=== PATIENT | female | born 2000 | race African-American/Black ===

== ENCOUNTER 2021-12-11 10:45 | Emergency (ER) | payer OTHER ==
[2021-12-11 12:13] LABS: Bilirubin 1+ (Negative); Blood, Urine 250 (Negative); Clarity Cloudy (Clear); Glucose, Urine (Dipstick) Normal (Negative); Ketone, Urine Negative (Negative); Leukocyte 25 (Negative); Nitrite Positive (Negative); Protein, Urine (Dipstick) 30 mg/dl (Neg-Trace); Specific Gravity, Urine 1.025 (1.005-1.030)
[2021-12-11 12:39] LABS: WBC/HPF 0-3 HPF (0-3)
[2021-12-11 12:40] LABS: Bacteria/HPF None Seen HPF (None Seen); Squamous Epithelial 0-3 HPF (0-3)
== END 2021-12-11 12:15 | disposition home or self-care (01) ==
LOC: CSHERS 10:45
DX: N39.0 Urinary tract infection, site not specified (principal)
CPT/HCPCS: 81003; 81015; 87086; 96372; 99284

== ENCOUNTER 2023-01-03 08:17 | Outpatient (CLI) | payer BC, OTHER | END 2023-01-03 08:18 | disposition home or self-care (01) | LOC: CSHULT 08:17 | PROVIDERS: ATTEND Family Medicine | DX: Z34.82 Encounter for supervision of other normal pregnancy, second trimester (principal); Z3A.20 20 weeks gestation of pregnancy | CPT/HCPCS: 76805 ==

== ENCOUNTER 2023-01-28 17:27 | Day surgery (SDC) | payer BC, OTHER ==
[2023-01-28 17:50] VITALS: BMI 17.7
[2023-01-28] MEDS ORDERED: hydrALAZINE 20 MG/ML VIAL SLOW IVP PRN (18:21)
[2023-01-28 19:12] LABS: Fetal Membranes Rupture No Membranes Rupture (No Rupture)
== END 2023-01-28 19:36 | disposition home or self-care (01) ==
LOC: CSHLD/OP 17:27
PROVIDERS: ATTEND Family Medicine
DX: O41.8X20 Other specified disorders of amniotic fluid and membranes, second trimester, not applicable or unspecified (principal); Z3A.23 23 weeks gestation of pregnancy
CPT/HCPCS: 84112; 87480; 87510; 87660; 99283

== ENCOUNTER 2023-02-21 19:03 | Emergency (ER) | payer BC, OTHER ==
[2023-02-21] MEDS ORDERED: Acetaminophen 500 MG TAB ONE (20:38)
[2023-02-21 21:28] LABS: SARS-CoV-2 NAA Rapid Test Not Detected (NotDetected)
== END 2023-02-21 21:55 | disposition home or self-care (01) ==
LOC: CSHERS 19:03
DX: J10.1 Influenza due to other identified influenza virus with other respiratory manifestations (principal); Z20.822 Contact with and (suspected) exposure to COVID-19; F17.210 Nicotine dependence, cigarettes, uncomplicated
CPT/HCPCS: 87081; 87430; 93005; 93010; 99283

== ENCOUNTER 2023-05-09 19:30 | Inpatient (IN) | payer BC, OTHER ==
[2023-05-10] MEDS ORDERED: HYDROcodone/Acetaminophen 5/325 mg Tablet PO PRN (02:06)
[2023-05-10] MEDS ORDERED: Lidocaine 1% (PF) 30 ML VIAL SC PRN (02:06)
[2023-05-10] MEDS ORDERED: hydrALAZINE 20 MG/ML VIAL SLOW IVP PRN ×2 (02:06→21:09)
[2023-05-10] MEDS ORDERED: Ibuprofen 800 MG TAB PO PRN (02:06)
[2023-05-10] MEDS ORDERED: Misoprostol 200 MCG TAB PR PRN (02:06)
[2023-05-10] MEDS ORDERED: Tranexamic Acid 1,000 MG/10 ML VIAL IVP PRN (02:06)
[2023-05-10] MEDS ORDERED: Ondansetron PF 4 MG/2 ML Vial IVP PRN ×3 (02:06→21:09)
[2023-05-10] MEDS ORDERED: Diphenoxylate HCl/Atropine Tablet PO PRN (02:06)
[2023-05-10] MEDS ORDERED: Acetaminophen 500 MG TAB PO PRN (02:06)
[2023-05-10] MEDS ORDERED: Oxytocin 30 units/NS 500 ML 500 ML IV SCH ×2 (02:06)
[2023-05-10] MEDS ORDERED: Carboprost 250 MCG/ML AMP IM PRN (02:06)
[2023-05-10] MEDS ORDERED: Promethazine HCl 25 MG/ML VIAL IM PRN ×3 (02:06→21:09)
[2023-05-10] MEDS ORDERED: Methylergonovine 0.2 MG/ML VIAL IM PRN (02:06)
[2023-05-10] MEDS ORDERED: Lactated Ringer's 1,000 ML IV SCH (02:06)
[2023-05-10] MEDS: Misoprostol 100 MCG TAB PO SCH (03:00)
[2023-05-10 03:30] LABS: Hematocrit 36.2 % (34.9-44.5); Hemoglobin 12.3 g/dL (12.0-15.5); Mean Corpuscular Hemoglobin 28.3 pg (27.0-33.0); Mean Corpuscular Volume 83.4 fl (81.6-98.3); Mean Platelet Volume 11.7 fl (7.4-10.4); Platelet Count 162 10x3/uL (150-450); RBC Distribution Width 15.5 % (11.5-14.5); Red Blood Cell (RBC) Count 4.34 10x6/uL (3.90-5.03); White Blood Cell (WBC) Count 6.6 10x3/uL (3.5-10.5)
[2023-05-10 03:52] LABS: HBSAg Index 0.21 S/CO (0-0.99); Hep B Surf Ag - L&D Non-Reactive S/CO (NonReactive)
[2023-05-10 03:54] LABS: Syphilis Antibody Nonreactive (Nonreactive); Syphilis Antibody Index 0.15 S/CO (<1.00 Non-Reactive)
[2023-05-10] MEDS: Oxytocin 30 units/NS 500 ML 500 ML IV SCH (10:08)
[2023-05-10] MEDS ORDERED: fentaNYL 50 mcg/mL 1 mL Vial ONE (12:04)
[2023-05-10] MEDS: fentaNYL 50 mcg/mL 1 mL Vial SLOW IVP PRN (12:10)
[2023-05-10] MEDS: fentaNYL/Ropivacaine Epidural 100 ML ONE (14:07)
[2023-05-10] MEDS ORDERED: Lactated Ringer's 500 ML IV PRN (14:21)
[2023-05-10] MEDS ORDERED: Moisturizing Cream (Eucerin) 113 GM JAR TOP PRN (14:21)
[2023-05-10] MEDS ORDERED: diphenhydrAMINE 50 MG/ML VIAL IVP PRN (14:21)
[2023-05-10] MEDS ORDERED: Naloxone HCl 0.4 mg/ml Vial IVP PRN ×2 (14:21)
[2023-05-10] MEDS ORDERED: Acetaminophen 325 MG TAB PO PRN (14:21)
[2023-05-10] MEDS ORDERED: ePHEDrine Sulfate 50 MG/10 ML VIAL SLOW IVP PRN (14:21)
[2023-05-10] MEDS ORDERED: fentaNYL 2 mcg/Ropivacaine 0.2% Epidural 100 ML CADD EPIDURAL SCH (14:30)
[2023-05-10] MEDS ORDERED: Communication Order-Pharmacy FS SCH (14:30)
[2023-05-10] MEDS ORDERED: diphenhydrAMINE 25 MG CAP PO PRN (21:09)
[2023-05-10] MEDS ORDERED: Lanolin Ointment 7 GM TUBE TOP PRN (21:09)
[2023-05-10] MEDS ORDERED: Boostrix 0.5 ML (Tdap) VIAL (>/=7 yrs of age) IM ONE (21:09)
[2023-05-10] MEDS ORDERED: Milk Of Magnesia 30 ML UDCUP PO PRN (21:09)
[2023-05-10] MEDS ORDERED: Bisacodyl 10 MG SUPP PR PRN (21:09)
[2023-05-10] MEDS: Ibuprofen 800 MG TAB PO SCH (21:55)
[2023-05-10] MEDS: Docusate 100 MG CAP PO SCH (21:55)
[2023-05-11] MEDS: HYDROcodone/Acetaminophen 5/325 mg Tablet PO PRN (05:19)
[2023-05-11] MEDS: Ferrous Sulfate 325 MG TAB PO SCH (07:41)
[2023-05-11] MEDS ORDERED: Lidocaine 2% MPF 10 ML AMP (For Epidural Use) ONE (09:00)
[2023-05-11] MEDS ORDERED: Bupivacaine 0.25% HCL 30 ML VIAL ONE (09:00)
[2023-05-11] MEDS: Prenatal Vitamin 1 TAB PO SCH (09:44)
[2023-05-11] MEDS: Benzocaine-Menthol 82.5 ML CAN TOP PRN (10:22)
[2023-05-11 15:38] VITALS: BP 108/63; TEMP 98.1
== END 2023-05-11 19:27 | disposition home or self-care (01) | DRG 806 ==
LOC: CSHLD 05-10 00:40 → CSHPED 05-10 19:54
PROVIDERS: ADMIT Family Medicine; ATTEND Family Medicine
PROC: 10E0XZZ Delivery of Products of Conception, External Approach (ICD-10-PCS; principal; 2023-05-10)
PROC: 0UQMXZZ Repair Vulva, External Approach (ICD-10-PCS; 2023-05-10)
PROC: 10907ZC Drainage of Amniotic Fluid, Therapeutic from Products of Conception, Via Natural or Artificial Opening (ICD-10-PCS; 2023-05-10)
PROC: 3E0P7VZ Introduction of Hormone into Female Reproductive, Via Natural or Artificial Opening (ICD-10-PCS; 2023-05-10)
DX: O36.5930 Maternal care for other known or suspected poor fetal growth, third trimester, not applicable or unspecified (principal); O36.0130 Maternal care for anti-D [Rh] antibodies, third trimester, not applicable or unspecified; Z37.0 Single live birth; Z3A.38 38 weeks gestation of pregnancy; O70.0 First degree perineal laceration during delivery; Z79.82 Long term (current) use of aspirin
CPT/HCPCS: 51702; 85027; 86780; 86850; 86870; 86900; 86901; 87340; J0665; J2590; J3010

== ENCOUNTER 2023-11-14 12:36 | Emergency (ER) | payer BC, OTHER ==
[2023-11-14] MEDS ORDERED: Ibuprofen 200 MG TAB ONE (13:53)
[2023-11-14 14:18] LABS: Influenza A by NAA Not Detected (NotDetected); Influenza B by NAA Not Detected (NotDetected); RSV by NAA Not Detected (NotDetected); SARS-CoV-2 NAA Rapid Test DETECTED (NotDetected)
== END 2023-11-14 16:01 | disposition home or self-care (01) ==
LOC: CSHERS 12:36
DX: U07.1 COVID-19 (principal); F17.210 Nicotine dependence, cigarettes, uncomplicated
CPT/HCPCS: 0241U; 99283

== ENCOUNTER 2024-03-17 10:33 | Emergency (ER) | payer OTHER ==
[2024-03-17 10:57] LABS: Bilirubin Neg (Negative); Blood, Urine Negative (Negative); Clarity Clear (Clear); Glucose, Urine (Dipstick) 250 mg/dL (Negative); Ketone, Urine Negative (Negative); Leukocyte 100 (Negative); Nitrite Negative (Negative); Protein, Urine (Dipstick) Negative (Neg-Trace); Urobilinogen Normal mg/dL (Less than 2)
[2024-03-17 11:29] LABS: CAUTI Indications for Culture Dysuria,urgency,freq; RBC/HPF 0-3 HPF (0-3)
[2024-03-17 11:30] LABS: Bacteria/HPF 4+ HPF (None Seen); Squamous Epithelial 0-3 HPF (0-3); Urine Culture Reflex No No
== END 2024-03-17 12:01 | disposition left against medical advice (07) ==
LOC: CSHERS 10:33
DX: Z53.21 Procedure and treatment not carried out due to patient leaving prior to being seen by health care provider (principal)
CPT/HCPCS: 81001

== ENCOUNTER 2024-04-11 15:22 | Outpatient (CLI) | payer OTHER | END 2024-04-11 15:23 | disposition home or self-care (01) | LOC: CSHULT 15:22 | PROVIDERS: ATTEND Family Medicine | DX: Z34.82 Encounter for supervision of other normal pregnancy, second trimester (principal); Z3A.21 21 weeks gestation of pregnancy | CPT/HCPCS: 76805 ==

== ENCOUNTER 2024-11-27 12:42 | Emergency (ER) | payer OTHER, SELFPAY ==
[2024-11-27] MEDS ORDERED: Acetaminophen 500 MG TAB ONE (13:20)
[2024-11-27] MEDS ORDERED: Ketorolac Tromethamine 30 MG (1 mL) VIAL ONE (13:50)
[2024-11-27 14:22] LABS: Hematocrit 38.2 % (34.9-44.5); Hemoglobin 12.1 g/dL (12.0-15.5); Mean Corpuscular Hemoglobin 26.5 pg (27.0-33.0); Mean Corpuscular Volume 83.8 fL (81.6-98.3); Platelet Count 149 10x3/uL (150-450); Red Blood Cell (RBC) Count 4.56 10x6/uL (3.90-5.03); White Blood Cell (WBC) Count 12.36 10x3/uL (3.5-10.5)
[2024-11-27 14:27] LABS: BHCG - Serum Negative (NEGATIVE); Pregs Control Background? CLEAR/WHITE (CLR/WHITE); Pregs Control Bar Appear? YES (CONTROL BAR)
[2024-11-27 14:34] LABS: ALT (SGPT) 10 U/L (Less than 34); AST (SGOT) 16 U/L (11-34); Albumin 4.0 g/dL (3.1-4.5); Alkaline Phosphatase 52 U/L (40-110); Anion Gap 13 mmol/L (10-20); BUN (Urea Nitrogen) 7 mg/dL (7.0-18.7); Bilirubin, Total 1.7 mg/dL (0.3-1.2); Calc. Creatinine Clearance 0 mL/min (70-130); Calcium 8.9 mg/dL (7.8-10.44); Carbon Dioxide 25 mmol/L (22-29); Chloride 103 mmol/L (98-107); Globulin 3.4 g/dL (2.4-3.5); Glucose 105 mg/dL (70-105); Lipase 10 U/L (8-78); Potassium 3.5 mmol/L (3.5-5.1); Sodium 137 mmol/L (136-145)
[2024-11-27 14:48] LABS: Glucose, Urine (Dipstick) 100 mg/dL (Negative); Leukocyte 25 (Negative); Protein, Urine (Dipstick) 100 mg/dl (Neg-Trace); Specific Gravity, Urine 1.015 (1.005-1.030)
[2024-11-27 15:37] LABS: CAUTI Indications for Culture Pelvic or flank pain; RBC/HPF 0-3 HPF (0-3)
[2024-11-27 15:38] LABS: Bacteria/HPF 3+ HPF (None Seen); Mucous/LPF 2+ LPF (<2+)
[2024-11-27 15:39] LABS: Urine Culture Reflex No No
[2024-11-27 15:49] LABS: MDiff Complete? YES; Platelet Adequacy Comment Appears Decreased; RBC Morphology Within Normal Limits
[2024-11-27] MEDS ORDERED: cefTRIAXone (ROCEPHIN) 1 GM VIAL ONE (16:01)
== END 2024-11-27 16:39 | disposition home or self-care (01) ==
LOC: CSHERS 12:42
DX: N39.0 Urinary tract infection, site not specified (principal); R50.9 Fever, unspecified; F17.210 Nicotine dependence, cigarettes, uncomplicated
CPT/HCPCS: 80053; 81001; 83690; 84703; 85025; 87428; 96365; 96375; J0696; J1885; Q0162